=== PATIENT | male | born 1960 | race Caucasian/White ===

== ENCOUNTER → 2017-02-09 | Outpatient (CLI) | payer BC ==
[2017-02-09 18:21] LABS: BLOOD UREA NITROGEN 15 mg/dl (7-18); BUN/CREATININE RATIO 13.8 (10-20); CALCIUM 8.6 mg/dl (8.5-10.1); CARBON DIOXIDE 27 mmol/L (21-32); CHLORIDE 110 mmol/L (98-107); CHOLESTEROL 224 mg/dl (0-200); GLUCOSE 87 mg/dl (70-99); SODIUM 143 mmol/L (136-145)
[2017-02-09 18:31] LABS: CHOLESTEROL/HDL RATIO 5.1; HDL CHOLESTEROL 44 mg/dl; LDL CHOLESTEROL CALCULATED 133 mg/dl; TRIGLYCERIDES 236 mg/dl (0-150); VERY LOW DENSITY LIPOPROT CALC 47 mg/dl
[2017-02-10 08:05] LABS: ESTIMATED AVERAGE GLUCOSE 120 mg/dl; HA1C FLAG Normal (Normal)
== END | disposition home or self-care (01) ==
LOC: C.LABPVFM 15:52
PROVIDERS: ATTEND Family Medicine
DX: I10 Essential (primary) hypertension (principal); R73.03 Prediabetes; E78.5 Hyperlipidemia, unspecified

== ENCOUNTER → 2017-10-29 | Outpatient (CLI) | payer BC ==
[2017-10-29 13:28] LABS: BLOOD UREA NITROGEN 12 mg/dl (7-18); CALCIUM 8.5 mg/dl (8.5-10.1); CARBON DIOXIDE 27 mmol/L (21-32); CREATININE 1.01 mg/dl (0.60-1.40); GLUCOSE 105 mg/dl (70-99); SODIUM 139 mmol/L (136-145)
[2017-10-29 13:32] LABS: CHOLESTEROL 219 mg/dl (0-200); LDL CHOLESTEROL CALCULATED 147 mg/dl
== END | disposition home or self-care (01) ==
LOC: C.LABPVFM 08:30
PROVIDERS: ATTEND Family Medicine
DX: Z11.59 Encounter for screening for other viral diseases (principal); E78.5 Hyperlipidemia, unspecified; I10 Essential (primary) hypertension

== ENCOUNTER 2019-07-22 22:17 | Observation (INO) ==
[2019-07-22 23:11] LABS: Basophils # (auto) 0.02 K/uL (0-0.2); Basophils % (auto) 0.2 %; Eosinophils # (auto) 0.21 K/uL (0-0.5); Eosinophils % (auto) 1.6 %; Hemoglobin 15.9 g/dL (14.0-18.0); Immature Granulocytes # (auto) 0.07 K/uL (0.00-0.02); Immature Granulocytes % (auto) 0.5 %; Lymphocytes # (auto) 1.99 K/uL (1.2-3.4); Mean Corpuscular Hemoglobin 33.1 pg (25-34); Mean Corpuscular Hgb Conc 36.1 g/dL (32-36); Mean Corpuscular Volume 91.5 fL (80-100); Mean Platelet Volume 10.3 fL (7.4-10.4); Monocytes # (auto) 1.16 K/uL (0.11-0.59); Monocytes % (auto) 8.7 %; Neutrophils # (auto) 9.82 K/uL (1.4-6.5); Platelet Count 239 K/uL (130-400); RDW Coefficient of Variation 12.5 % (11.5-14.5); RDW Standard Deviation 41.8 fL (36.4-46.3); Red Blood Count 4.81 M/uL (4.7-6.1); White Blood Count 13.27 K/uL (4.8-10.8)
[2019-07-22] MEDS ORDERED: OPTIRAY 320 125ml IV PRN (23:16)
[2019-07-22 23:22] LABS: Partial Thromboplastin Ratio 0.9; Prothrombin Time 9.8 Seconds (9.0-12.0)
[2019-07-22 23:30] LABS: Alanine Aminotransferase 40 U/L (12-78); Albumin Level 3.6 gm/dl (3.4-5.0); Aspartate Aminotransferase 17 U/L (15-37); BUN Creatinine Ratio 10.9 (10-20); Blood Urea Nitrogen 11 mg/dl (7-18); Calcium 9.1 mg/dl (8.5-10.1); Carbon Dioxide 29 mmol/L (21-32); Chloride 105 mmol/L (98-107); Creatinine Clr Calc Pharmacy 99.4 ml/min; Est GFR (African American) 93.5; Est GFR (Non-African American) 80.6; Glucose 132 mg/dl (70-99); Potassium 3.7 mmol/L (3.5-5.1); Sodium 140 mmol/L (136-145)
[2019-07-22 23:34] LABS: Albumin Globulin Ratio 0.9 (0.9-2); Alkaline Phosphatase 79 U/L (45-117); Bilirubin,Total 0.6 mg/dl (0.2-1); Globulin 4.1 gm/dl (2.5-4.0); Total Protein 7.7 gm/dl (6.4-8.2); Troponin I < 0.015 ng/ml (0-0.045)
[2019-07-22] MEDS ORDERED: HEPARIN SODIUM/DEXTROSE 25,000 UNITS/500 ML BAG IV SCH (23:45)
[2019-07-23] MEDS ORDERED: Heparin BOLUS **ED Use Only IV STA (00:15)
[2019-07-23] MEDS ORDERED: MoRPHine SULFATE 4 MG/ML 1 ML CARP\\VIAL IV STA (00:42)
--- NOTE | 2019-07-23 00:42 | Emergency Department Note ---
Entered by Jose E German acting as a scribe for History of Present Illness General Chief complaint: Shortness of Breath/Dyspnea Stated complaint: RT SIDE CHEST PAIN, SOB, CHILLS- HX PE Time Seen by Provider: 07/22/19 22:35 Source: patient History of Present Illness Provider complaint: Shortness of breath Onset (ago): hour(s) (3.5) Location: chest Severity: similar to prior episodes Pain Consistency: + constant Maximum Pain Intensity: 8 Current Pain Intensity: 8 Quality: + sharp Exacerbated By: + other (Deep breaths) Associated symptoms: + chest pain, + fever/chills (No fevers) and + nausea/v omiting (No vomiting) The patient is a 58 year old male who presents to the Emergency Room with complaints of constant right sided chest pain that started about 3.5 hours ago. The patient rates the pain as an 8/10 and describes it as a sharp sensation that is worse with taking deep breaths. The patient endorses shortness of breath with the pain as well as some intermittent chills and nausea. The patient has a history of a PE which he developed while recovering from a [facility] i [facility]. The patient states this pain feels similar to when he had the PE. The patient adds that on 07/14 he had arthroscopic knee surgery. The patient denies any lower extremity swelling besides around where the procedure was done. He also denies any fevers or cough. Home Medications Home Medications Medication Instructions Recorded Confirmed Type amlodipine 5 mg PO QAM 06/27/19 07/22/19 History atorvastatin 10 mg PO QAM 06/27/19 07/22/19 History triamterene-hydrochlorothiazid 1 tab PO QAM 06/27/19 07/22/19 History ondansetron HCl [Zofran] 4 mg PO DAILY PRN #10 tab 07/15/19 07/22/19 Rx oxycodone 5 - 10 mg PO Q4H PRN #30 tab 07/15/19 07/22/19 Rx colchicine 0.6 mg tablet 0.6 mg PO .COMPLEX #10 tab 07/21/19 07/22/19 Rx Allergies Allergy/AdvReac Type Severity Reaction Status Date / Time No Known Allergies Allergy Mild Verified 07/22/19 23:10 Past Med/Surg History Medical History Abdominal wall abscess (Inactive) Carpal tunnel syndrome, bilateral (Acute) Cervical radiculopathy Cervicalgia (Inactive) Diverticulosis of colon (Inactive) Erectile dysfunction (Acute) Esophageal reflux (Acute) Hematoma of groin (Inactive) RESOLVED Hyperlipidemia (Acute) Hypertension (Acute) Paresthesias/numbness (Acute) Prediabetes (Inactive) Shoulder pain, right (Inactive) Thoracolumbar back pain (Acute) Surgical History History of colonoscopy Hx of shoulder surgery RCR by Dr. Alston 07/08/15 Family History Mother Diabetes Social History Preferred Language: Brazilian Communication Ability: Effective Visual Impairment: No Limitations Hearing Ability: Normal English Teacher Required: No Beliefs That Will Affect Care: None marital status: Current Living Situation: Significant Other current occupational status: employed current occupation: drives truck Feels Safe at Home: Yes Smoking Status: Never smoker Tobacco Type: smokeless tobacco ; Second Hand Exposure: No ; Hx Alcohol Use: Yes Alcohol type: beer Alcohol Intake Frequency: Daily Alcohol Intake Frequency Comment: 4 drinks/day Hx Substance Use: No caffeine: Yes Dental Care, Regularly: Yes Physical Activity Frequency: Daily Seatbelt Use: always Sunscreen Use: No Review of Systems See HPI for pertinent positives & negatives. and A total of 10 systems reviewed and were otherwise negative Physical Exam Vital Signs Vital Signs - 24 hr 07/22/19 22:17 07/22/19 22:19 07/22/19 22:40 Temperature 36.4 C L Temperature Source Oral Pulse Rate 104 H Pulse Rate [Apical] Respiratory Rate 16 Respiratory Effort / Characteristics Spontaneous Labored Non-Labored Spontaneous Respiratory Depth Normal Normal Respiratory Pattern Tachypnea Regular Blood Pressure 158/96 H Blood Pressure [Left Arm] Blood Pressure Mean 116 Blood Pressure Mean [Left Arm] Blood Pressure Position Sitting Pulse Oximetry 94 96 94 Oxygen Delivery Method Room Air Room Air Room Air Sepsis Recent Fever Within 48 Hours No Sepsis Action Taken by Nursing No Action Required 07/22/19 23:22 Temperature Temperature Source Pulse Rate Pulse Rate [Apical] 93 H Respiratory Rate 20 Respiratory Effort / Characteristics Respiratory Depth Respiratory Pattern Blood Pressure Blood Pressure [Left Arm] 182/93 H Blood Pressure Mean Blood Pressure Mean [Left Arm] 122 Blood Pressure Position Pulse Oximetry 96 Oxygen Delivery Method Room Air Sepsis Recent Fever Within 48 Hours Sepsis Action Taken by Nursing Constitutional: Vital signs reviewed. Eyes: Pupils are equal round reactive to light. Conjunctiva are noninjected. ENT: Pharynx is clear without erythema or exudate. Mucous membranes are moist. Neck supple without meningeal signs. Respiratory: Clear to auscultation bilaterally. Breath sounds are equal bilaterally. Cardiovascular: Regular rate and rhythm. No rubs or gallops. GI: Soft, nondistended and nontender. Bowel sounds are present. Musculoskeletal: No peripheral edema. No lower extremity tenderness. Swelling to the right knee, no erythema or increased warmth, no calf tenderness. Integumentary: No cyanosis. Neurological: The patient is awake and alert. No focal deficits. Psychiatric: Normal affect. Course Course 2237: Past medical records reviewed. The patient was evaluated in room A02, and a complete history and physical examination were performed. 2356: I reevaluated the patient and he is still in pain and tachypneic. He is sating 93 on RA. I updated the patient on test results. I discussed the patient's case with Dr. Conley [facility] Hospitalist about the patient's case and he agreed to accept the patient for further evaluation. Consultations Consultation #1: I discussed the patient's case with Dr. Yael Mcclellan [facility] Hospitalist about the patient's case and he agreed to accept the patient for further evaluation. Time: 23:56 Administered Medications Ioversol (Optiray 320 125ml) 93 ml IV ONCE PRN PRN Reason: Interaction Checking Stop: 07/26/19 23:15 Last Admin: 07/22/19 23:16 Dose: 93 ml Documented by: [id number] Critical Care Time Critical Care Time: Yes Total Critical Care Time: 35 I have personally spent approximately 35 minutes of critical care time in the direct management of this patient. This includes bedside care, interpretation of diagnostic studies, and testing, discussion with consultants, patient, and family members, and other required patient management activities. This 35 minutes is in excess of all separately billable procedures. Medical Decision Making Differential Diagnosis Differential Diagnosis includes: PE, DVT, pleurisy, PNA, and NH, amongst others. Medical Records Attestation: I reviewed the patient's medical records. I did perform a limited focused review of portions of the patient's old chart on the electronic medical record. The patient had arthroscopic surgery of the right knee on 07/15. Home Medications Current Medication List: was personally reviewed by me Laboratory Data Attestation: I reviewed the patient's lab results. Result diagrams: 07/22/19 22:54 07/22/19 22:54 Lab Results 07/22/19 07/22/19 07/22/19 Range/Units 22:54 22:54 22:54 WBC 13.27 H (4.8-10.8) K/uL RBC 4.81 (4.7-6.1) M/uL Hgb 15.9 (14.0-18.0) g/dL Hct 44.0 (42-52) % MCV 91.5 (80-100) fL MCH 33.1 (25-34) pg MCHC 36.1 H (32-36) g/dL RDW Std Deviation 41.8 (36.4-46.3) fL RDW Coeff of Verónica 12.5 (11.5-14.5) % Plt Count 239 (130-400) K/uL MPV 10.3 (7.4-10.4) fL Immature Gran % (Auto) 0.5 % Neut % (Auto) 74.0 % Lymph % (Auto) 15.0 % Catron % (Auto) 8.7 % Eos % (Auto) 1.6 % Baso % (Auto) 0.2 % Immature Gran # (Auto) 0.07 H (0.00-0.02) K/uL Neut # (Auto) 9.82 H (1.4-6.5) K/uL Lymph # (Auto) 1.99 (1.2-3.4) K/uL Catron # (Auto) 1.16 H (0.11-0.59) K/uL Eos # (Auto) 0.21 (0-0.5) K/uL Baso # (Auto) 0.02 (0-0.2) K/uL PT 9.8 (9.0-12.0) Seconds INR 1.0 (0.9-1.1) APTT 24.0 (21.0-31.0) Seconds PTT Ratio 0.9 Sodium 140 (136-145) mmol/L Potassium 3.7 (3.5-5.1) mmol/L Chloride 105 (98-107) mmol/L Carbon Dioxide 29 (21-32) mmol/L Anion Gap 6.0 (3-11) BUN 11 (7-18) mg/dl Creatinine 1.02 (0.6-1.4) mg/dl POC Creatinine (0.6-1.3) mg/dl Est Cr Clr Drug Dosing 99.4 ml/min Est GFR ( Amer) 93.5 Est GFR (Non-Af Amer) 80.6 BUN/Creatinine Ratio 10.9 (10-20) Glucose 132 H (70-99) mg/dl Calcium 9.1 (8.5-10.1) mg/dl Total Bilirubin 0.6 (0.2-1) mg/dl AST 17 (15-37) U/L ALT 40 (12-78) U/L Alkaline Phosphatase 79 (45-117) U/L Troponin I < 0.015 (0-0.045) ng/ml Total Protein 7.7 (6.4-8.2) gm/dl Albumin 3.6 (3.4-5.0) gm/dl Globulin 4.1 H (2.5-4.0) gm/dl Albumin/Globulin Ratio 0.9 (0.9-2) 07/22/19 Range/Units 22:59 WBC (4.8-10.8) K/uL RBC (4.7-6.1) M/uL Hgb (14.0-18.0) g/dL Hct (42-52) % MCV (80-100) fL MCH (25-34) pg MCHC (32-36) g/dL RDW Std Deviation (36.4-46.3) fL RDW Coeff of Verónica (11.5-14.5) % Plt Count (130-400) K/uL MPV (7.4-10.4) fL Immature Gran % (Auto) % Neut % (Auto) % Lymph % (Auto) % Catron % (Auto) % Eos % (Auto) % Baso % (Auto) % Immature Gran # (Auto) (0.00-0.02) K/uL Neut # (Auto) (1.4-6.5) K/uL Lymph # (Auto) (1.2-3.4) K/uL Catron # (Auto) (0.11-0.59) K/uL Eos # (Auto) (0-0.5) K/uL Baso # (Auto) (0-0.2) K/uL PT (9.0-12.0) Seconds INR (0.9-1.1) APTT (21.0-31.0) Seconds PTT Ratio Sodium (136-145) mmol/L Potassium (3.5-5.1) mmol/L Chloride (98-107) mmol/L Carbon Dioxide (21-32) mmol/L Anion Gap (3-11) BUN (7-18) mg/dl Creatinine (0.6-1.4) mg/dl POC Creatinine 1.0 (0.6-1.3) mg/dl Est Cr Clr Drug Dosing ml/min Est GFR ( Amer) Est GFR (Non-Af Amer) BUN/Creatinine Ratio (10-20) Glucose (70-99) mg/dl Calcium (8.5-10.1) mg/dl Total Bilirubin (0.2-1) mg/dl AST (15-37) U/L ALT (12-78) U/L Alkaline Phosphatase (45-117) U/L Troponin I (0-0.045) ng/ml Total Protein (6.4-8.2) gm/dl Albumin (3.4-5.0) gm/dl Globulin (2.5-4.0) gm/dl Albumin/Globulin Ratio (0.9-2) Imaging Data Radiologist's Impression: Radiology results as stated below per my review and the radiologist's interpretation: CTA CHEST: Study is positive for small subsegmental right lower lobe multifocal pulmonary embolism for example axial 106 and 78 Thoracic aorta within limits No pericardial effusion Trace right pleural fluid Central airways are patent without focal consolidation Dependent basilar atelectasis Radiologist: Jose E Khan M.D. Study ready at 23:25 and initial results transmitted at 23:45 Communications: Clear Time Type Notes 07/22/19 23:55 Verify Receipt Verified receipt with ER Clerk Cody, given to Dr. Zayas on 07/22 23:56 (-05:00) ECG Data Attestation: I personally reviewed and interpreted this ECG as follows: Indication: + SOB/dyspnea Rate (beats per minute): 90 Rhythm: + normal sinus ECG ST segments: no ST elevation ECG Findings: + Q waves (Lead 3 only); no PVCs Blood Pressure Blood Pressure Findings: Elevated blood pressure Blood Pressure Disposition: Referred to patients primary care provider [facility] Narrative I did evaluate the patient as noted above. The patient is presenting with sudden onset of right-sided chest pain with shortness of breath. He does have a prior history of PE and states that this feels similar. He just had arthroscopic surgery of his knee recently. IV access was established. The patient was placed on a continuous scale clerk. I did order and personally review the patient's 12-lead EKG as described above. Twelve-lead EKG does not demonstrate any acute ischemia. I did order and review the patient's blood work as noted in the electronic medical record. His white count is over 13,000. There is no signs of infection to his knee. This is a nonspecific finding. Electrolytes are unremarkable. Troponin is negative. I did order a CT angiogram of the chest. I did review the images myself as well as the radiology report as described above. He has multiple pulmonary emboli in the right lower lobe. I did discuss the test results with the patient. I did start him on heparin. He was given a bolus and then placed on a continuous drip of heparin. I did discuss risks with him prior to starting this. I did order a Doppler of the lower extremities. I did discuss the case with the hospitalist and senior case manager. He was given IV morphine and Zofran for pain. Impression & Plan Pulmonary emboli Discharge Plan Visit Data Chief Complaint: Shortness of Breath/Dyspnea Stated Complaint: RT SIDE CHEST PAIN, SOB, CHILLS- HX PE ED Provider: Cali Zayas Discharge Problem: Pulmonary emboli Patient Disposition: Being Evaluated by Hospitalist Forms Stand Alone Forms: My [facility] Prescriptions Prescriptions: No Action colchicine 0.6 mg tablet 0.6 mg PO .COMPLEX Qty: 10 RF: 2 atorvastatin 10 mg tablet 10 mg PO QAM RF: 0 amlodipine 5 mg tablet 5 mg PO QAM RF: 0 triamterene-hydrochlorothiazid 37.5-25 mg tablet 1 tab PO QAM RF: 0 ondansetron HCl [Zofran] 4 mg tablet 4 mg PO DAILY PRN (Reason: nausea and vomiting) Qty: 10 RF: 0 oxycodone 5 mg tablet 5 - 10 mg PO Q4H PRN (Reason: pain) Qty: 30 RF: 0 Referrals Referrals: Griffin Chaudhary MD [Primary Care Provider] - Discharge Problem: Pulmonary emboli Qualifiers: Pulmonary embolism type: unspecified Chronicity: acute Acute cor pulmonale pres ence: unspecified Qualified Code(s): I26.99 - Other pulmonary embolism without acute cor pulmonale The scribe's documentation has been prepared under my direction and personally reviewed by me in its entirety. I confirm that the note above accurately r eflects all work, treatment, procedures, and medical decision making performed by me.
[2019-07-23] MEDS ORDERED: ONDANSETRON INJ 2 MG/ML 2 ML VIAL IV STA (00:43)
[2019-07-23] MEDS: HYDROCODONE/ACETAMOPHEN 5/325MG TAB PO PRN ×3 (01:16→18:52)
[2019-07-23] MEDS: Heparin Adult STANDARD Wt-Based Dextrose 5% 25,000 units/500 mL IV SCH ×2 (01:16→17:14)
--- NOTE | 2019-07-23 02:02 | History & Physical Report ---
Date of Service July 23, 2019 Assessment & Plan (1) Pulmonary emboli: CTA for PE protocol showed right lower lobe multiple PEs. Bilateral lower extremity venous Dopplers negative for DVT. Continue heparin drip begun in ED. History of previous DVT and bilateral PE approximately 8 years ago associated with pelvic injury. Hypercoagulable work-up Present on Admission?: Yes (2) Gout: Colchicine 0.6 mg daily as needed flares Present on Admission?: No (3) Chewing tobacco nicotine dependence: Nicotine patch if desired Present on Admission?: Yes (4) Esophageal reflux: No active treatment Present on Admission?: Yes (5) Hyperlipidemia: Continue atorvastatin 10 mg daily Present on Admission?: Yes (6) Hypertension: Continue amlodipine 5 mg daily and triamterene/HCTZ daily Present on Admission?: Yes (7) Strain of right knee: Status post right knee surgery on 07/15. Dopplers at this time. No DVT present on Present on Admission?: Yes History of Present Illness Chief Complaint: The patient presents to the ED with complaint of the acute onset of severe right sided chest pain while watching TV. Primary Care Provider: Griffin Chaudhary MD The patient is a 58yo male with PMH including DVT/Bilateral PE about 8 years ago post pelvic injury, gout, HTN, HLD, GERD, Bilateral CTS and is status post Right knee surgery on 07/15. The pain he developed today was very similar to his previous PE pain, which prompted him to come to the ED today. In the ED, workup included a CTA PE protocol which showed multiple PE's in RLL, and venous doppler of bilateral LE's which were negative for DVT. He reports that his mother did have multiple PE's. Allergies Allergy/AdvReac Type Severity Reaction Status Date / Time No Known Allergies Allergy Mild Verified 07/22/19 23:10 Home Medications Home Medications Medication Instructions Recorded Confirmed Type amlodipine 5 mg PO QAM 06/27/19 07/22/19 History atorvastatin 10 mg PO QAM 06/27/19 07/22/19 History triamterene-hydrochlorothiazid 1 tab PO QAM 06/27/19 07/22/19 History ondansetron HCl [Zofran] 4 mg PO DAILY PRN #10 tab 07/15/19 07/22/19 Rx oxycodone 5 - 10 mg PO Q4H PRN #30 tab 07/15/19 07/22/19 Rx colchicine 0.6 mg tablet 0.6 mg PO .COMPLEX #10 tab 07/21/19 07/22/19 Rx Past Med/Surg History Medical History Abdominal wall abscess (Inactive) Carpal tunnel syndrome, bilateral (Acute) Cervical radiculopathy Cervicalgia (Inactive) Diverticulosis of colon (Inactive) Erectile dysfunction (Acute) Esophageal reflux (Acute) Hematoma of groin (Inactive) RESOLVED Hyperlipidemia (Acute) Hypertension (Acute) Paresthesias/numbness (Acute) Prediabetes (Inactive) Shoulder pain, right (Inactive) Thoracolumbar back pain (Acute) Surgical History History of colonoscopy Hx of shoulder surgery RCR by Dr. Alston 07/08/15 Family History Mother Diabetes Social History Preferred Language: Nigerien Communication Ability: Effective Visual Impairment: No Limitations Hearing Ability: Normal Set Up And Lay Out Inspector Required: No Beliefs That Will Affect Care: None marital status: Current Living Situation: Significant Other current occupational status: employed current occupation: drives truck Feels Safe at Home: Yes Smoking Status: Never smoker Tobacco Type: smokeless tobacco ; Second Hand Exposure: No ; Hx Alcohol Use: Yes Alcohol type: beer Alcohol Intake Frequency: Daily Alcohol Intake Frequency Comment: 4 drinks/day Hx Substance Use: No caffeine: Yes Dental Care, Regularly: Yes Physical Activity Frequency: Daily Seatbelt Use: always Sunscreen Use: No Review of Systems Review of Systems: The patient denies palpitations, cough, lower extremity swelling, sore throat, fevers, chills, sweats, weight change, fatigue, nausea, vomiting, diarrhea , constipation, abdominal pain, pelvic pain, blood in urine or stool, dysuria, urinary frequency or urgency, lightheadedness, dizziness, headache, memory loss, loss of consciousness, rash, abnormal bruising or bleeding, imbalance, focal or generalized weakness, numbness or tingling in arms, generalized arthralgias or myalgias, neck pain, or night sweats. The review of systems is otherwise negative other than for that already noted above, and at least 10 systems have been reviewed. Physical Exam Physical Exam: The patient is awake, alert and oriented 3, well developed and well nourished, normocephalic and atraumatic, lying in bed and in mild to moderate acute distress. HEENT--PERRL, EOMI, mucous membranes and oropharynx dry. Neck--supple. No JVD. No bruits. Thyroid normal, trachea midline, no adenopathy. Heart--normal S1 and S2. No murmurs, rubs or gallops. Lungs--clear bilaterally, no respiratory distress, no accessory muscle use. Some splinting due to pain Abdomen--normal bowel sounds and soft. Nontender. Nondistended. Extremities--no cyanosis or clubbing. No edema. There are good distal pulses b/l . Dermatologic--normal skin turgor, normal color, no abnormal lymph nodes, no rash. Neurologic--cranial nerves II through XII grossly intact. Rheumatologic--normal range of motion. Psychiatric--normal affect. Results & Data Vital Signs (Past 12 Hours) Vital Signs Temp Pulse Pulse Resp BP BP Pulse Ox 07/23/19 01:30 95 H 17 148/101 H 94 07/23/19 01:00 89 16 119/78 94 07/22/19 23:22 93 H 20 182/93 H 96 07/22/19 22:40 94 07/22/19 22:19 97.5 F L 104 H 16 158/96 H 96 07/22/19 22:17 94 Laboratory Results Laboratory Results WBC 13.27 K/uL (4.8-10.8) H 07/22/19 22:54 RBC 4.81 M/uL (4.7-6.1) 07/22/19 22:54 Hgb 15.9 g/dL (14.0-18.0) 07/22/19 22:54 Hct 44.0 % (42-52) 07/22/19 22:54 MCV 91.5 fL (80-100) 07/22/19 22:54 MCH 33.1 pg (25-34) 07/22/19 22:54 MCHC 36.1 g/dL (32-36) H 07/22/19 22:54 RDW Std Deviation 41.8 fL (36.4-46.3) 07/22/19 22:54 RDW Coeff of Verónica 12.5 % (11.5-14.5) 07/22/19 22:54 Plt Count 239 K/uL (130-400) 07/22/19 22:54 MPV 10.3 fL (7.4-10.4) 07/22/19 22:54 Immature Gran % (Auto) 0.5 % 07/22/19 22:54 Neut % (Auto) 74.0 % 07/22/19 22:54 Lymph % (Auto) 15.0 % 07/22/19 22:54 Hall % (Auto) 8.7 % 07/22/19 22:54 Eos % (Auto) 1.6 % 07/22/19 22:54 Baso % (Auto) 0.2 % 07/22/19 22:54 Immature Gran # (Auto) 0.07 K/uL (0.00-0.02) H 07/22/19 22:54 Neut # (Auto) 9.82 K/uL (1.4-6.5) H 07/22/19 22:54 Lymph # (Auto) 1.99 K/uL (1.2-3.4) 07/22/19 22:54 Hall # (Auto) 1.16 K/uL (0.11-0.59) H 07/22/19 22:54 Eos # (Auto) 0.21 K/uL (0-0.5) 07/22/19 22:54 Baso # (Auto) 0.02 K/uL (0-0.2) 07/22/19 22:54 PT 9.8 Seconds (9.0-12.0) 07/22/19 22:54 INR 1.0 (0.9-1.1) 07/22/19 22:54 APTT 24.0 Seconds (21.0-31.0) 07/22/19 22:54 PTT Ratio 0.9 07/22/19 22:54 Sodium 140 mmol/L (136-145) 07/22/19 22:54 Potassium 3.7 mmol/L (3.5-5.1) 07/22/19 22:54 Chloride 105 mmol/L (98-107) 07/22/19 22:54 Carbon Dioxide 29 mmol/L (21-32) 07/22/19 22:54 Anion Gap 6.0 (3-11) 07/22/19 22:54 BUN 11 mg/dl (7-18) 07/22/19 22:54 Creatinine 1.02 mg/dl (0.6-1.4) 07/22/19 22:54 POC Creatinine 1.0 mg/dl (0.6-1.3) 07/22/19 22:59 Est Cr Clr Drug Dosing 99.4 ml/min 07/22/19 22:54 Est GFR ( Amer) 93.5 07/22/19 22:54 Est GFR (Non-Af Amer) 80.6 07/22/19 22:54 BUN/Creatinine Ratio 10.9 (10-20) 07/22/19 22:54 Glucose 132 mg/dl (70-99) H 07/22/19 22:54 Calcium 9.1 mg/dl (8.5-10.1) 07/22/19 22:54 Total Bilirubin 0.6 mg/dl (0.2-1) 07/22/19 22:54 AST 17 U/L (15-37) 07/22/19 22:54 ALT 40 U/L (12-78) 07/22/19 22:54 Alkaline Phosphatase 79 U/L (45-117) 07/22/19 22:54 Troponin I < 0.015 ng/ml (0-0.045) 07/22/19 22:54 Total Protein 7.7 gm/dl (6.4-8.2) 07/22/19 22:54 Albumin 3.6 gm/dl (3.4-5.0) 07/22/19 22:54 Globulin 4.1 gm/dl (2.5-4.0) H 07/22/19 22:54 Albumin/Globulin Ratio 0.9 (0.9-2) 07/22/19 22:54 Diagnostic Findings [facility] Patient: ERIKA HEWITT (Male) : 60 Status: ER Date: 07/23/19 00:44 Room #: History: +PE. R/O DVT Slices: 44 Priors: Tech: Soco Allen @ [phone] Exams: US VENOUS BILATERAL LOWER EXTREMITIES Accession Numbers: [id number] Preliminary Findings Only See Final Report For Complete Findings US VENOUS BILATERAL LOWER EXTREMITIES: Negative for DVT Radiologist: Nereida Eli MD Study ready at 00:51 and initial results transmitted at 01:11 *This report constitutes a preliminary interpretation only. Non-acute findings felt to be unrelated to the clinical presentation may not be discussed in this report. The study will be interpreted and a final report will be generated by the local Radiologist the following shift. To reach the hospital radiology department call [phone]. If a discrepancy is found between the preliminary and final interpretations of this study, please notify us via our Client Portal at [email or web address].You can also fax this report with a description of the discrepancy, or include the final report, to our daytime fax number [phone].If faxing, please indicate the severity of discrepancy using one of the following categories: [ ] 1 - Agree/Informational [ ] 2 - Unlikely to Affect Management [ ] 3 - Possible Eventual Change of Management [ ] 4 - Probable Immediate Change of Management For all other patient related information, please fax us at [phone]. [id number] [facility] Patient: ERIKA HEWITT (Male) : 60 Status: ER Date: 07/22/19 23:19 Room #: History: right sided chest pains, shortness of breath recent right knee surgery on sunday Slices: 546 Priors: Tech: Leticia Leos @ [phone] Exams: CTA CHEST Contrast: IV Amt: 93ml of optiray Accession Numbers: [id number] Preliminary Findings Only See Final Report For Complete Findings CTA CHEST: Study is positive for small subsegmental right lower lobe multifocal pulmonary embolism for example axial 106 and 78 Thoracic aorta within limits No pericardial effusion Trace right pleural fluid Central airways are patent without focal consolidation Dependent basilar atelectasis Radiologist: Jose E Khan M.D. Study ready at 23:25 and initial results transmitted at 23:45 Communications: Clear Time Type Notes 07/22/19 23:55 Verify Receipt Verified receipt with ER Consulting Nursetita Cody, given to Dr. Zayas on 07/22 23:56 (-05:00) *This report constitutes a preliminary interpretation only. Non-acute findings felt to be unrelated to the clinical presentation may not be discussed in this report. The study will be interpreted and a final report will be generated by the local Radiologist the following shift. To reach the hospital radiology department call [phone]. If a discrepancy is found between the preliminary and final interpretations of this study, please notify us via our Client Portal at [email or web address] [email or web address].You can also fax this report with a description of the discrepancy, or include the final report, to our daytime fax number [phone].If faxing, please indicate the severity of discrepancy using one of the following categories: [ ] 1 - Agree/Informational [ ] 2 - Unlikely to Affect Management [ ] 3 - Possible Eventual Change of Management [ ] 4 - Probable Immediate Change of Management For all other patient related information, please fax us at [phone]. [id number] Code Status & VTE Plan Code Status Full code VTE Prophylaxis Plan VTE Prophylaxis will be ordered: Yes PG Care Time/CCT Total # of Minutes Spent Total Time Spent with Patient: Total time spent is greater than 50% in coordination of care (as documented) at patient's floor/unit and/or counseling patient: (1) Pulmonary emboli Acute cor pulmonale presence: unspecified Chronicity: acute Pulmonary embolism type: unspecified Qualified Code(s): I26.99 - Other pulmonary embolism without acute cor pulmonale
[2019-07-23] MEDS ORDERED: ALUMINUM/MAGNESIUM SUSP 30 ML UDC PO PRN (02:08)
[2019-07-23] MEDS ORDERED: MAGNESIUM HYDROXIDE SUSP 30 ML UDC PO PRN (02:08)
[2019-07-23] MEDS ORDERED: ONDANSETRON INJ 2 MG/ML 2 ML VIAL IV PRN (02:08)
[2019-07-23] MEDS ORDERED: ACETAMINOPHEN 325 MG TAB PO PRN (02:08)
[2019-07-23] MEDS ORDERED: ONDANSETRON 4 MG TAB PO PRN (02:08)
[2019-07-23] MEDS ORDERED: POLYETHYLENE (MIRALAX) 17 GM PACK PO PRN (02:08)
[2019-07-23] MEDS ORDERED: ZOLPIDEM TARTRATE 5 MG TAB PO PRN (02:08)
[2019-07-23] MEDS ORDERED: MoRPHine SULFATE 4 MG/ML 1 ML CARP\\VIAL IV PRN (02:20)
[2019-07-23] MEDS ORDERED: MoRPHine SULFATE 2 MG/ML CARP ONE (02:40)
--- NOTE | 2019-07-23 06:42 | Ultrasound Report ---
US venous doppler LE bilateral CLINICAL HISTORY: Pulmonary embolism. SUSPECTED DVT. COMPARISON STUDY: August 2010 FINDINGS: Real-time and color flow Doppler imaging were performed. Flow was seen within the femoral, popliteal and calf veins with no intraluminal thrombus demonstrated. The saphenous vein is patent. IMPRESSION: No evidence of lower extremity DVT. ACT 112: Negative or not required by law. Electronically signed by: Antoni Nova M.D. 07/23/2019 6:40 AM
[2019-07-23] MEDS: MoRPHine SULFATE 2 MG/ML CARP IV PRN ×3 (07:00→16:21)
--- NOTE | 2019-07-23 07:23 | CT Scan Report ---
CT ANGIOGRAPHY OF THE CHEST, PULMONARY EMBOLUS PROTOCOL CLINICAL HISTORY: Right-sided chest pain. Evaluate for pulmonary embolus. COMPARISON STUDY: Chest CT April 04, 2014. TECHNIQUE: Following IV administration of 93 mL of Optiray-320, helical axial images of the chest wer e obtained utilizing the pulmonary embolus protocol. Maximal intensity projections and sagittal and coronal reformats were viewed on an independent 3D workstation. IV contrast was administered without complication. Automated exposure control was utilized for the study. A dose lowering technique was utilized adhering to the principles of ALARA. CT DOSE: 578.66 mGy.cm FINDINGS: No central pulmonary embolus is identified. Pulmonary arterial opacification is suboptimal within the mid to upper pulmonary arterial vasculature. There are several subsegmental right lower l obe pulmonary emboli. There is no CT evidence for right heart strain. Subpleural opacity within the l ateral basilar segment right lower lobe is noted. There is no pneumothorax. The central airways are p atent. No enlarged thoracic lymph nodes are present. Prominent right hilar lymph nodes are unchanged from earlier chest CT. There is no thoracic aortic dissection. No suspicious osseous lesions are note d. Upper abdomen is unremarkable. IMPRESSION: 1. Several subsegmental right lower lobe pulmonary emboli. 2. Trace right pleural effusion. Mild opacity within the lateral basilar segment of the right lower l obe which may reflect a small pulmonary infarct or atelectasis. ACT 112: Negative or not required by law. Electronically signed by: Stuart Hunter M.D. 07/23/2019 7:22 AM
[2019-07-23 08:02] LABS: Partial Thromboplastin Ratio 1.3; Partial Thromboplastin Time 34.9 Seconds (21.0-31.0)
[2019-07-23] MEDS: AMLODIPINE BESYLATE 5 MG TAB PO SCH (08:46)
[2019-07-23] MEDS: ATORVASTATIN 10 MG TAB PO SCH (08:46)
[2019-07-23] MEDS: TRIAMTERENE/HCTZ 37.5/25MG TAB PO SCH (08:46)
[2019-07-23] MEDS: OXYCODONE HCL IR 5 MG TAB (IMMEDIATE RELEASE) PO PRN ×2 (08:48→17:17)
--- NOTE | 2019-07-23 10:14 | Hospitalist Progress Note ---
Date of Service July 23, 2019 Assessment & Plan (1) Pulmonary emboli: CTA for PE protocol showed right lower lobe multiple PEs. Mild hypoxia 89% on RA noted on VS this afternoon Bilateral lower extremity venous Dopplers negative for DVT. Continue heparin drip begun in ED - will transition to Eliquis 10 mg bid tonight. Risks and benefits of NOACs discussed with patient and he is agreeable History of previous DVT and bilateral PE approximately 8 years ago associated with pelvic injury. Hypercoagulable work-up pending Echo pending Trop negative on admission (2) Gout: Colchicine 0.6 mg daily as needed flares (3) Chewing tobacco nicotine dependence: Nicotine patch if desired (4) Esophageal reflux: No active treatment (5) Hyperlipidemia: Continue atorvastatin 10 mg daily (6) Hypertension: Continue amlodipine 5 mg daily and triamterene/HCTZ daily (7) Strain of right knee: Status post Right Knee Arthroscopy; Removal of Loose Bodies; Partial Medial Menisectomy, Patella Chondroplasty -07/[address] Hatch (8) DVT prophylaxis: Heparin to transition to Eliquis Subjective Mr. Geller is having pain in his right lower chest with breathing and feels tired and short of breath, denies cough. He otherwise has no complaints ROS Constitutional: no chills, aches, sweats or fever Respiratory: see HPI Cardiac: no chest pain, palpitations, edema, orthopnea or lightheadedness GI: no abdominal pain, nausea, vomiting, diarrhea or constipation : no dysuria or hesitancy Extremities: no joint pain or weakness Skin: no rash All other systems reviewed and negative Physical Exam Physical Exam: General: no distress Eyes: normal inspection, PERLL Respiratory: chest non tender, clear to auscultation, normal breath sounds, no respiratory distress, no accessory muscle use Cardiac: regular rate and rhythm, no rub or gallop, no murmur, no edema, no jvd GI/: active bowel sounds, no abd pain or tenderness, soft, non distended Extremities: normal range of motion, normal strength, non tender Neuro/Psych: alert and oriented x 3, normal mood and affect Skin: normal color, dry Results & Data Vital Signs (Past 12 Hours) Vital Signs Temp Pulse Pulse Pulse Resp BP BP 07/23/19 07:55 77 07/23/19 06:37 36.6 C 75 19 147/90 H 07/23/19 03:47 36.9 C 84 20 156/83 H 07/23/19 02:00 36.8 C 95 H 20 155/84 H 07/23/19 01:30 95 H 17 148/101 H 07/23/19 01:05 36.8 C 95 H 18 155/84 H 07/23/19 01:00 89 16 119/78 07/22/19 23:22 93 H 20 182/93 H 07/22/19 22:40 07/22/19 22:19 36.4 C L 104 H 16 158/96 H 07/22/19 22:17 Pulse Ox 07/23/19 07:55 07/23/19 06:37 91 07/23/19 03:47 92 07/23/19 02:00 94 07/23/19 01:30 94 07/23/19 01:05 94 07/23/19 01:00 94 07/22/19 23:22 96 07/22/19 22:40 94 07/22/19 22:19 96 07/22/19 22:17 94 PG Care Time/CCT Total # of Minutes Spent Total Time Spent with Patient: Total time spent is greater than 50% in coordination of care (as documented) at patient's floor/unit and/or counseling patient: (1) Pulmonary emboli Acute cor pulmonale presence: unspecified Chronicity: acute Pulmonary embolism type: unspecified Qualified Code(s): I26.99 - Other pulmonary embolism without acute cor pulmonale
[2019-07-23] MEDS ORDERED: HEPARIN IV BOLUS 7,000 UNITS in SYRINGE 0 ML IV ONE (12:00)
[2019-07-23 19:51] LABS: Partial Thromboplastin Ratio 1.6; Partial Thromboplastin Time 43.5 Seconds (21.0-31.0)
[2019-07-23] MEDS: APIXABAN 5 MG TABLET PO SCH (20:19)
--- NOTE | 2019-07-23 23:11 | Electrocardiogram Report ---
Test Reason : Blood Pressure : / mmHG Vent. Rate : 090 BPM Atrial Rate : 090 BPM P-R Int : 186 ms QRS Dur : 088 ms QT Int : 354 ms P-R-T Axes : 033 055 028 degrees QTc Int : 433 ms Normal sinus rhythm Normal ECG When compared with ECG of 27-JUN-2019 15:31, No significant change was found Confirmed by Dale Hines ([id number]) on 07/23/2019 11:11:14 PM Referred By: REFERRED SELF Confirmed By:Dale Hines
[2019-07-24] MEDS: HYDROCODONE/ACETAMOPHEN 5/325MG TAB PO PRN (04:30)
[2019-07-24] MEDS: APIXABAN 5 MG TABLET PO SCH (09:23)
[2019-07-24] MEDS: TRIAMTERENE/HCTZ 37.5/25MG TAB PO SCH (09:24)
[2019-07-24] MEDS: AMLODIPINE BESYLATE 5 MG TAB PO SCH (09:24)
[2019-07-24] MEDS: ATORVASTATIN 10 MG TAB PO SCH (09:24)
[2019-07-24 09:52] LABS: Hematocrit (blood only) 39.4 % (42-52); Hemoglobin 13.7 g/dL (14.0-18.0); Mean Corpuscular Hemoglobin 32.1 pg (25-34); Mean Corpuscular Hgb Conc 34.8 g/dL (32-36); Mean Corpuscular Volume 92.3 fL (80-100); Mean Platelet Volume 10.2 fL (7.4-10.4); Platelet Count 155 K/uL (130-400); RDW Coefficient of Variation 12.4 % (11.5-14.5); RDW Standard Deviation 41.7 fL (36.4-46.3); Red Blood Count 4.27 M/uL (4.7-6.1); White Blood Count 7.79 K/uL (4.8-10.8)
[2019-07-24 10:27] LABS: Albumin Level 3.1 gm/dl (3.4-5.0); Calcium 8.9 mg/dl (8.5-10.1); Est GFR (African American) 91.3; Est GFR (Non-African American) 78.8; Potassium 3.7 mmol/L (3.5-5.1)
[2019-07-24 10:30] LABS: Albumin Globulin Ratio 0.8 (0.9-2); Bilirubin,Total 1.2 mg/dl (0.2-1); Total Protein 7.1 gm/dl (6.4-8.2)
[2019-07-24 12:45] LABS: Estimated Average Glucose 123 mg/dl; Hemoglobin A1C 5.9 % (4.5-5.6)
--- NOTE | 2019-07-24 13:59 | Discharge Summary ---
Date of Service July 24, 2019 Admission HPI Per Admitting Provider The patient is a 58yo male with PMH including DVT/Bilateral PE about 8 years ago post pelvic injury, gout, HTN, HLD, GERD, Bilateral CTS and is status post Right knee surgery on 07/15. The pain he developed today was very similar to his previous PE pain, which prompted him to come to the ED today. In the ED, workup included a CTA PE protocol which showed multiple PE's in RLL, and venous doppler of bilateral LE's which were negative for DVT. He reports that his mother did have multiple PE's. Principal Diagnosis Pulmonary embolus Discharge Exam Constitutional WD/WN, vitals as above Respiratory normal respiratory effort, lungs clear to auscultation Cardiovascular RRR, no murmur, no edema Gastrointestinal (Abdomen) normal bowel sounds, soft, nontender, no hepatosplenomegaly Musculoskeletal no cyanosis or clubbing, extremities motor strength 5/5 Skin no rashes, warm and dry Neurologic moves all extremities and awake Psychiatric A+Ox3, euthymic affect Discharge Data Allergies Allergy/AdvReac Type Severity Reaction Status Date / Time No Known Allergies Allergy Mild Verified 07/22/19 23:10 Consultations 07/22/19 23:57 ED Decision to Admit Stat 07/23/19 02:08 Consult Case Management - Discharge Planning Routine Ordered Studies 07/22/19 22:40 CT angio chest PE protocol Urgent 07/22/19 23:51 US venous doppler [facility] Urgent Hospital Course (1) Pulmonary emboli: CTA for PE protocol showed right lower lobe multiple PEs. Mild hypoxia 89% yesterday, now improved Bilateral lower extremity venous Dopplers negative for DVT. Transitioned from heparin gtt to Eliquis 10 mg bid 07/24. Risks and benefits of NOACs discussed with patient and he is agreeable History of previous DVT and bilateral PE approximately 8 years ago associated with pelvic injury. Hypercoagulable work-up pending Echo showing normal EF, no wma, severe concentric left ventricular hypertrophy Trop negative on admission (2) Gout: Colchicine 0.6 mg daily as needed flares (3) Chewing tobacco nicotine dependence: Nicotine patch if desired (4) Esophageal reflux: No active treatment (5) Hyperlipidemia: Continue atorvastatin 10 mg daily (6) Hypertension: Given above results of echo, patient's blood pressure probably needs to be under better control Will change amlodipine to losartan 50 mg to help reduce remodeling and better improve pressures. Continue hctz/triamterene. Check blood pressures daily and follow with pcp (7) Strain of right knee: Status post Right Knee Arthroscopy; Removal of Loose Bodies; Partial Medial Menisectomy, Patella Chondroplasty -07/[address] Hatch (8) Elevated bilirubin: Bili is 1.2 - no complaints of abdominal pain, nausea, or vomiting Follow with pcp (9) Hyperglycemia: A1c was 5.9 - follow up with pcp. Encourage lifestyle changes. (10) DVT prophylaxis: Eliquis Total Time Total Time Spent Total Time Spent (In Minutes): greater than 30 minutes Discharge Plan Discharge Items Patient Disposition: Home - Self-Care Reason For Visit: RLL PULMONARY EMBOLI Discharge Diagnosis: Right lower lobe pulmonary emboli Activity: Resume your previous activity Non-emergency contact: Primary Care Provider Call non-emergency contact if: you have any medication questions Follow-up/Referrals: Griffin Chaudhary MD [Primary Care Provider] - 07/30/19 10:00 am (Please, follow up at [facility] with Dr. Chaudhary on SundayJuly 30 at 10:00 am. *If you need ot change this appointment, call the office at [phone].) Ian Hatch [Surgeon] - 07/28/19 8:00 am (Please, follow up at [facility] with Dr. Ian Hatch on SundayJuly 28 at 8:00 am. *If you need to change this appointment, call the office at [phone].) Diet: Heart Healthy and Low Sodium (2gm) Addtl Attending Provider Instructions: (1) Pulmonary emboli: In the right lower lobe. You will continue with Eliquis twice daily. As we discussed, this may be a medication you stay on indefinitely given that this is your second time with blood clots. You should call your doctor right away if you fall or hit your head, if you see blood in your stool or black tarry stools, if you develop little red spots on your skin (petechiae), or if you develop excessive bruising. You may bleed more easily. Be careful and avoid injury. Use a soft toothbrush and an electric razor. Do not to take any whoe-uzk-csuanqy pain medicine except Tylenol (including aspirin, ibuprofen, Motrin, Aleve, Advil, naproxen, diclofenac sodium, oral Voltaren, also not allowed to take fish oil as all these medications increase your incidence of bleeding) You can take Tylenol as needed for pain but not more than 3000 mg per day as a total dose (that is the maximum of 6 tablet, 500 mg each, divided throughout the day) , if you take more than the total of 3000 mg of Tylenol throughout the day you may damage your liver. Your hypercoagulable work-up to look for causes for your tendency to have blood clots is still pending. Please follow up with your primary care provider. - You will take Eliquis 10 mg twice a day for a total of 7 days and then transition to 5 mg twice daily. You have completed one total day of this therapy and so have 6 more to go starting tonight. - Follow up with your primary care provider concerning repeat imaging. You may need to reimage your lungs to ensure resolution in 4-6 weeks per your doctor's discretion. (2) Hypertension: Some adjustments have been made to your antihypertensive regimen. Your echocardiogram (ultrasound of your heart) showed severe left ventricular hypertrophy. This essentially means that your heart muscle has become bigger likely due to increased work to pump blood out to the body because of high blood pressure. To improve this and hopefully help to reverse some of this hypertrophy I have started you on losartan. You will discontinue your amlodipine. Please check your blood pressure every day at different times after sitting quietly for 5-15 minutes. Keep a log to take with you to your next doctor's appointment. Please let your doctor know if you are getting dizzy or lightheaded or if the top number is below 100 when you take your blood pressure. Limit your sodium intake to around 2000 mg per day. I HIGHLY ENCOURAGE YOU TO STOP USING TOBACCO. Please discuss with your doctor cessation strategies if stopping is difficult for you (3) Hyperglycemia Your blood sugars were elevated while in the hospital. A hemoglobin A1c was drawn. This value gives an estimate of what your blood sugars have been running over the last 3 months. Normal A1C is considered to be below 5.7 percent. Results between 5.7 and 6.4 percent may mean you have prediabetes. This means you have a higher risk of developing diabetes. You will need to follow up with your doctor on monitoring this but you should start with modifying your diet to include lots of fruits, vegetables, lean proteins (chicken, fish, tofu, beans), and whole grains (whole wheat bread, brown rice, whole wheat pasta). Avoid simple and refined carbohydrates like white bread, white potatoes, white rice and sugary treats. You should also increase your exercise after you are cleared by your doctor to do so. Pending Studies at Discharge: Yes Studies:: Hypercoagulable lab work Stand-Alone Forms: [facility], Work/School Release (Inpt), Smoking Cessation Medications and DC Order Prescriptions: New apixaban 5 mg tablet See Rx Instructions .ROUTE .COMPLEX Qty: 36 RF: 2 oxycodone 5 mg Tablet 5 mg PO Q4H PRN (Reason: pain) Qty: 18 RF: 0 losartan 50 mg tablet 50 mg PO DAILY Qty: 30 RF: 0 Continued colchicine 0.6 mg tablet 0.6 mg PO .COMPLEX Qty: 10 RF: 2 atorvastatin 10 mg tablet 10 mg PO QAM RF: 0 triamterene-hydrochlorothiazid 37.5-25 mg tablet 1 tab PO QAM RF: 0 ondansetron HCl [Zofran] 4 mg tablet 4 mg PO DAILY PRN (Reason: nausea and vomiting) Qty: 10 RF: 0 Discontinued amlodipine 5 mg tablet 5 mg PO QAM RF: 0 oxycodone 5 mg tablet 5 - 10 mg PO Q4H PRN (Reason: pain) Qty: 30 RF: 0 Discharge Orders: Discharge Order (Routine); Ordered 07/24/19 Ordered By: Isadora Lopez/Other Patient Handouts: Apixaban Oral tablet, Losartan Potassium Oral tablet Admission Data Admit Date/Time: 07/23/19 01:06 Attending Provider: Tomas Desai Admit Provider: Salvador Conley Primary Care Provider: Griffin Chaudhary Other Providers: Tomas Desai Other Interventions: Discharge Summary Assessment (RN) Last Done: 07/24/19 15:06 DC Date/Time DO NOT enter until pt leaves facility: 07/24/19 16:23 Supervising Physician Co-Signing Physician Notes I supervised Isadora Ferraro NP on this patient's care. I examined the patient today independently of her. I discussed the plan of care with her with the plan being as written in her note except for any following changes/exceptions: None. Feeling well. Less pain. Will follow up as outpatient for hypercoaguable labs. Coding Level of Care Code D/C Day Management >30 mins Diagnoses Pulmonary emboli I26.99 Acute cor pulmonale presence: unspecified Chronicity: acute Pulmonary embolism type: unspecified Gout M10.9 Chewing tobacco nicotine dependence F17.220 Esophageal reflux K21.9 Hyperlipidemia E78.5 Hypertension I10 Strain of right knee S86.911A Elevated bilirubin R17 Hyperglycemia R73.9 DVT prophylaxis Z29.9
--- NOTE | 2019-07-25 05:42 | Electrocardiogram Report ---
Test Reason : Blood Pressure : / mmHG Vent. Rate : 070 BPM Atrial Rate : 070 BPM P-R Int : 190 ms QRS Dur : 086 ms QT Int : 402 ms P-R-T Axes : 029 003 005 degrees QTc Int : 434 ms Normal sinus rhythm Minimal voltage criteria for LVH, may be normal variant Inferior infarct , age undetermined Abnormal ECG When compared with ECG of 22-JUL-2019 22:25, Inferior infarct is now Present Confirmed by Dale Hines ([id number]) on 07/25/2019 5:42:34 AM Referred By: REFERRED SELF Confirmed By:Dale Hines
[2019-07-28 17:27] LABS: Anti Cardiolipin Ab IgG <14 GPL; Anti Cardiolipin Ab IgM <12 MPL; Anti-Cardiolipin Ab IgA 15 APL; Anti-Thrombin III Activity 102 % activity (80-120); B2 Glycoprotein IgA <9 SAU (<=20); B2 Glycoprotein IgG <9 SGU (<=20); B2 Glycoprotein IgM <9 SMU (<=20); PTT LA Screen 32 sec (<=40); Protein S Functional(Activity) 99 % (70-150)
== END 2019-07-24 16:23 | disposition home or self-care (01) ==
LOC: 2W 22:17 → ED 22:17 → SUATTDRO 07-23 01:06 → 2W 07-23 01:40

== ENCOUNTER 2020-08-13 08:49 | Observation (INO) ==
--- NOTE | 2020-07-27 14:03 | Anesthesiology Consultation ---
Date of Service July 27, 2020 Assessment & Plan (1) Encounter for pre-operative examination: Chart Review Chart Review: Pending: Refer to Additional Notes / Consult section (pending updated preop labs and preop Covid testing ) and Patient NOT seen in Pre Admission Testing Pt getting preop labs updated when preop Covid testing testing done 08/09/20= will await results. Per nursing assessment 07/27/20, pt denies any recent travel. No known Covid positive contacts or Covid related symptoms. Pt denies any Covid infection in the past 90 days. Pt scheduled for preop Covid testing 08/09/[address] Alston's office= will await results. History Surgery Operation Date: 08/13/20 11:15 Proposed Procedures p Right Total Knee Arthroplasty - Juan Alston, Height/Weight Height: 6 ft 1 in Weight: 96.615 kg Allergies Allergy/AdvReac Type Severity Reaction Status Date / Time No Known Allergies Allergy Mild Verified 06/21/20 13:46 Medications Home Medications Medication Instructions Recorded Confirmed Last Taken colchicine 0.6 mg tablet 0.6 mg PO .COMPLEX #20 tab 12/12/19 07/27/20 Unknown ibuprofen 400 mg PO Q6H PRN 05/19/20 07/27/20 Unknown rivaroxaban [Xarelto] 20 mg PO QAM 05/19/20 07/27/20 Unknown atorvastatin 10 mg tablet 10 mg PO QAM #30 tab 06/14/20 07/27/20 Unknown losartan 100 mg tablet 50 mg PO QAM #90 tab 07/09/20 07/27/20 Unknown triamterene 37.5 1 tab PO QAM #30 tab 07/19/20 07/27/20 Unknown mg-hydrochlorothiazide 25 mg tablet Past Medical History Medical History Cervical radiculopathy Esophageal reflux Hx of gout Hyperlipidemia Hypertension Prediabetes Diet controlled Pulmonary embolism S/P KNEE SURGERY 07/2019 [facility]. 1-2 WEEKS POST OP-HAS BEEN ON THINNER SINCE F/U DR SALEEM ALLEN POST OP Past Family History Family History Mother Diabetes Denies family history of Ovarian cancer Prostate cancer Myocardial infarction Breast cancer Colorectal cancer Past Surgical History Surgical History History of colonoscopy Hx of shoulder surgery RCR by Dr. Alston 07/08/15 S/P right knee arthroscopy 07/2019 [facility] Social History Smoking Status: Former smoker tobacco type: cigarettes and smokeless tobacco Do You Dip or Chew Tobacco: No (QUIT 3 YEARS AGO) Smoking End Date: 3 YRS AGO Hx Alcohol Use: Yes Alcohol type: beer alcohol intake frequency: a few times a week Hx Substance Use: No substance use type: does not use Testing Electrocardiogram Date: 05/24/20 Findings: + NSR @ (70bpm) Normal EKG per cardio. Compared to EKG from 07/2019, criteria for inferior infarct no longer present. Chest X-Ray Date: 05/24/20 Findings: + NAD Echocardiogram Date: 07/23/19 EF: 60-65% LV Function: normal RWMA: + none Other Findings: + LVH ([facility]) and + diastolic dysfunction (Grade I ) Valvular Disease: + no significant valvular disease Normal RV size and systolic function. (Pt was admitted in hospital for PE at time of ECHO)
--- NOTE | 2020-08-12 07:42 | History & Physical Report ---
Date of Service August 12, 2020 Assessment & Plan (1) Right knee DJD: We will proceed with a right total knee arthroplasty. Postoperatively he will be started back on his Xarelto for DVT prophylaxis and kept overnight in the hospital for postoperative medical management. He plans to use [facility] physical therapy and [facility] upon discharge. History of Present Illness Chief Complaint: Osteoarthritis of the right knee. Primary Care Provider: Garry Schmitt DO Moreno is a pleasant 59-year-old male who has been dealing with chronic increasing right knee pain. He original x-rays and MRI show some arthritis and loose bodies. He underwent a right knee arthroscopy in July 2019. Unfortunately he did not do well postoperatively. He has had a couple of injections but continues to have knee pain. He has trouble regaining range of motion. His knee hurts him all the time. Follow-up x-rays show advancing osteoarthritis of the right knee. After failing conservative treatment, he has elected proceed with a right total knee arthroplasty.. Allergies Allergy/AdvReac Type Severity Reaction Status Date / Time No Known Allergies Allergy Mild Verified 06/21/20 13:46 Home Medications Medication Instructions Recorded Confirmed Type colchicine 0.6 mg tablet 0.6 mg PO .COMPLEX #20 tab 12/12/19 07/27/20 Rx ibuprofen 400 mg PO Q6H PRN 05/19/20 07/27/20 History rivaroxaban [Xarelto] 20 mg PO QAM 05/19/20 07/27/20 History atorvastatin 10 mg tablet 10 mg PO QAM #30 tab 06/14/20 07/27/20 Rx losartan 100 mg tablet 50 mg PO QAM #90 tab 07/09/20 07/27/20 Rx triamterene 37.5 1 tab PO QAM #30 tab 07/19/20 07/27/20 Rx mg-hydrochlorothiazide 25 mg tablet Past Med/Surg History Medical History Cervical radiculopathy Esophageal reflux Hx of gout Hyperlipidemia Hypertension Prediabetes Diet controlled Pulmonary embolism S/P KNEE SURGERY 07/2019 [facility]. HAS BEEN ON THINNER SINCE F/U DR SALEEM ALLEN POST OP Surgical History History of colonoscopy Hx of shoulder surgery RCR by Dr. Alston 07/08/15 S/P right knee arthroscopy 07/2019 [facility] Family History Mother Diabetes Denies family history of Ovarian cancer Prostate cancer Myocardial infarction Breast cancer Colorectal cancer Social History Smoking Status: Former smoker Second Hand Exposure: No; Hx Alcohol Use: Yes Alcohol type: beer Alcohol Intake Frequency Comment: 4 drinks/day Hx Substance Use: No Preferred Language: Turkmen Communication Ability: Effective Visual Impairment: No Limitations Hearing Ability: Normal Outside Machinist Required: No Beliefs That Will Affect Care: None marital status: Current Living Situation: Significant Other current occupational status: employed current occupation: drives truck Feels Safe at Home: Yes caffeine: Yes Dental Care, Regularly: Yes Physical Activity Frequency: Daily Seatbelt Use: always Sunscreen Use: No Assistive Devices: None Review of Systems All systems reviewed & are unremarkable except as noted in HPI & below. Physical Exam On physical examination of the right knee he has range of motion from 10 to 110 degrees. He has trouble reaching full extension. He is a +2 effusion. He has pain of the distal medial femoral condyle and over the medial joint line.. Constitutional WD/WN, vitals as above Eyes PERRL, conjunctivae normal, anicteric sclerae ENMT external ear and nose normal, oropharynx normal Neck trachea midline, no thyromegaly Respiratory normal respiratory effort Cardiovascular RRR, no murmur, no edema Gastrointestinal (Abdomen) normal bowel sounds, soft, nontender, no hepatosplenomegaly Psychiatric A+Ox3, euthymic affect Results & Data Results & Data Laboratory Results . Diagnostic Findings X-rays of the right knee do show advanced osteoarthritis with joint space narrowing, osteophyte formation, and salp-by-hawo articulation.. PG Care Time/CCT Total # of Minutes Spent Total Time Spent with Patient: Total time spent is greater than 50% in coordination of care (as documented) at patient's floor/unit and/or counseling patient: Coding Level of Care Code None Diagnoses Right knee DJD M17.11
[~2020-08-13 08:49] MED LIST: ACETAMINOPHEN 500 MG TAB PO SCH; BUPIVACAINE 0.5 % 5 MG/1 ML PF 10ML VIAL ONE; FAMOTIDINE 20 MG TAB PO SCH; GABAPENTIN 600 MG DOSE PO SCH; LR 500ML BOLUS, THEN 15ML/HR IV SCH; LR 60ML/HR IV SCH; ROPIVACAINE 0.5% 5 MG/ML 30 ML VIAL ONE; ROPIVACAINE 0.5% HCL/PF 150 MG, BUPIVACAINE 0.75% MPF 20 ML, EPINEPHrine 30MG/30ML (OR ... INSTIL SCH; TRANEXAMIC ACID 1,000 MG **IV Intra-op IV SCH; TRANEXAMIC ACID 1,000 MG **IV Pre-op IV SCH; ceFAZolin 2000MG 2,000 MG/15 ML SYR IV SCH; dexAMETHasone 4 MG TAB PO SCH
[2020-08-13] MEDS ORDERED: PROPOFOL IV EMULSION 10 MG/ML 20 ML VIAL IV ONE (09:08)
[2020-08-13] MEDS ORDERED: KETOROLAC 30 MG/ML VIAL ONE (09:08)
[2020-08-13] MEDS ORDERED: GLYCOPYRROLATE 0.2 MG/ML VIAL ONE (09:08)
[2020-08-13] MEDS ORDERED: ONDANSETRON INJ 2 MG/ML 2 ML VIAL ONE (09:08)
[2020-08-13] MEDS ORDERED: MIDAZOLAM HCL 1 MG/ML 2ML VIAL ONE (09:08)
[2020-08-13] MEDS ORDERED: LIDOCAINE HCL 2% 2 ML VIAL/AMP(20MG/ML) INFIL ONE (09:08)
--- NOTE | 2020-08-13 09:57 | History & Physical Bridge Note ---
Date of Service August 13, 2020 History & Physical Bridge Note I have examined the patient, reviewed the History & Physical and in the interval since the performance of the History & Physical I have noted the following changes of clinical significance: no changes noted
[2020-08-13] MEDS ORDERED: ORTHO JOINT ANESTHETIC ONE (10:16)
[2020-08-13] MEDS ORDERED: ePHEDrine sulfate 50 MG/ML AMP IV PRN (10:38)
[2020-08-13] MEDS ORDERED: ONDANSETRON INJ 2 MG/ML 2 ML VIAL IV PRN ×2 (10:38→14:42)
[2020-08-13] MEDS ORDERED: HYDROmorphone INJ 2 MG/ML SYR/VIAL IV PRN (10:38)
[2020-08-13] MEDS ORDERED: fentaNYL citrate 100 MCG/2 ML VIAL IV PRN (10:38)
[2020-08-13] MEDS ORDERED: ATROPINE SULFATE 0.1 MG/ML 10ML SYR IV PRN (10:38)
[2020-08-13] MEDS ORDERED: BUPIVACAINE 0.25% 30 ML VIAL ONE (10:56)
[2020-08-13] MEDS ORDERED: EPINEPHrine INJ 1 MG/ML AMP ONE (10:56)
[2020-08-13] MEDS ORDERED: KETAMINE 50 MG/5 ML SYRINGE ONE (10:57)
--- NOTE | 2020-08-13 12:38 | Operative Report ---
PG Post Operative Report Pre & Post Diagnosis Operation Date: 08/13/20 11:30 Pre-Op Diagnosis: Degenerative joint disease, right knee Post-Op Diagnosis: Degenerative joint disease, right knee I identified the patient and participated in the time-out.: Yes Procedure Operation Date: 08/13/20 11:30 Actual Procedures p Right Total Knee Arthroplasty(Right) - Juan Alston DO Surgeon Juan Alston DO Research Hydrologist Juan Hager PAC Estimated Blood Loss 20 Findings Consistent with Post-Op Diagnosis Specimens Right femoral and tibial bone Complications none Disposition Disposition: Recovery Room Indications Moreno is a pleasant 59-year-old male who is been dealing with chronic increasing right knee pain. X-rays and clinical examination were diagnostic for advanced osteoarthritis of the right knee. After failing conservative treatment, he elected proceed with a right total knee arthroplasty. Description of Procedure Implants used: I used a Patrick Persona total knee arthroplasty system with a size 10 standard femur, G tibia, 32 patella, and a size 10 medial congruent polyethylene bearing. All components were cemented in place with Palacos G cement. Moreno arrived [facility] for the above procedure. He was seen in the preoperative holding area and the operative extremity was identified and signed. He was given a preoperative antibiotic, TXA, a spinal anesthetic and an adductor nerve block. He was taken back to the operating room and laid on the table in supine position. He was given basic sedation. The operative knee was then prepped and draped in sterile fashion. A timeout was done, and the patient and the operative extremity was properly identified. A midline incision was made directly over the patella. Dissection was taken down to the extensor mechanism. A subvastus arthrotomy was used. The medial retinaculum was released and the fat pad was mostly excised. The knee was flexed and the ACL, PCL, and meniscus were removed. A drill was sent down the center of the femoral canal followed by an intramedullary brody. Off that brody a distal femoral cutting block was placed. 9 mm was resected off the distal femur at 5 of valgus. A posterior referencing AP sizing guide was then placed on the distal femur. The femur measured to be a size 10. 2 drill holes were placed in 3 of external rotation. A 4-in-1 cutting block was then impacted into place. Anterior, posterior, and chamfer cuts were then made. The proximal tibia was then exposed. An external tibial alignment guide was placed. A tibial cut guide was then anchored in place and the proximal tibia was then resected. The posterior aspect of the knee was then opened up and any additional meniscus fragments and osteophytes were removed. The tibia measured to be a size G. The tibial plate was then placed in the appropriate rotation and the tibia was drilled and punched. Trial components were then placed. I used a size 10 medial congruent polyethylene insert. The knee was brought through a full range of motion and felt to be stable. The peg holes for the femoral component were then drilled. The patella was then everted and 9 mm was resected off the posterior aspect of the patella. The patella measured to be a size 32. 3 peg holes were then drilled. A trial patella was placed. The knee was once again brought through a full range of motion and felt to be stable. Trial components were then removed. The surrounding soft tissues were injected with 100 cc of an orthopedic pain control cocktail. All components were then cemented into place with Palacos G cement. The final polyethylene insert was then snapped into place. Once cement was dry the tourniquet was deflated. Hemostasis was obtained. A dilute betadyne lavage was then done for 3 minutes. The joint was then irrigated with normal saline solution. The subvastus arthrotomy was then closed with #1 Vicryl suture. The skin was closed with 2-0 Vicryl, 3-0V lock suture, and victoria. A Silverlon and a soft compressive dressing were placed. He was then transferred to a hospital bed and taken to the postanesthesia care unit in stable condition. He tolerated the procedure well. Juan Hager PA-C, was present for the entire procedure. He was critical for patient positioning, prepping, draping, retraction exposure, wound closure and application of sterile dressing. I attest to the content of the Intraoperative Record and any orders documented therein. Any exceptions are noted below.
--- NOTE | 2020-08-13 13:22 | XRay Report ---
TWO VIEWS RIGHT KNEE CLINICAL HISTORY: Postoperative examination. FINDINGS: AP and crosstable lateral portable views of the right knee are compared to study dated 05/02. A right knee arthroplasty is in near anatomic alignment. There has been undersurface remodeli ng of the patella. No acute fracture is seen. An 11 mm ossific fragment is suggested along the latera l joint space. There are expected postoperative changes around the knee including skin clips, a surgi ozzy drain, soft tissue edema, and subcutaneous gas. IMPRESSION: 1. Expected postoperative changes status post right knee arthroplasty. No acute fracture is seen. 2. An 11 mm bony fragment is seen along the lateral joint space. ACT 112: Negative or not required by law. Electronically signed by: Virgil Romano M.D. 08/13/2020 1:20 PM
[2020-08-13] MEDS ORDERED: NALOXONE HCL 0.4 MG/1 ML VIAL/CARP IV PRN (14:42)
[2020-08-13] MEDS ORDERED: COLCHICINE 0.6 MG TAB PO PRN (14:42)
[2020-08-13] MEDS ORDERED: HYDROmorphone INJ 0.5 MG/0.5 ML SYR IV PRN (14:42)
[2020-08-13] MEDS ORDERED: METOCLOPRAMIDE HCL INJ 5 MG/ML 2 ML VIAL IV PRN (14:42)
[2020-08-13] MEDS ORDERED: bisacodyL 10 MG SUPP PR PRN (14:42)
[2020-08-13] MEDS ORDERED: MAGNESIUM HYDROXIDE SUSP 30 ML UDC PO PRN (14:42)
[2020-08-13] MEDS ORDERED: SODIUM CHLORIDE 0.9% 1000ML 1,000 ML IV SCH (14:42)
[2020-08-13] MEDS ORDERED: oxyCODONE HCL IR 5 MG TAB (IMMEDIATE RELEASE) PO PRN (14:42)
--- NOTE | 2020-08-13 14:50 | Anesthesiology Progress Note ---
Date of Service August 13, 2020 Anesthesia Post Procedure Vital Signs Vital Signs: Temp Pulse Pulse Resp BP Pulse Ox 08/13/20 14:30 36.4 C L 72 13 130/79 96 08/13/20 14:20 36.4 C L 75 17 138/75 95 08/13/20 14:10 36.4 C L 82 17 135/91 97 08/13/20 14:00 36.4 C L 87 17 140/86 97 08/13/20 13:50 36.4 C L 80 23 139/84 97 08/13/20 13:40 90 16 136/90 96 08/13/20 13:30 82 19 142/81 H 95 08/13/20 13:20 82 16 137/79 94 08/13/20 13:10 87 15 125/75 96 08/13/20 12:59 36.8 C 94 H 18 127/71 94 08/13/20 09:23 36.6 C 82 20 154/92 H 96 Pain Intensity Right Knee: Pain Intensity: 0 Transfer of Care Handoff Completed per policy Notes Mental Status: alert / awake / arousable and participated in evaluation Patient Amnestic to Procedure: Yes Nausea / Vomiting: adequately controlled Pain: adequately controlled Airway Patency, RR, SpO2: stable & adequate BP & HR: stable & adequate Hydration State: stable & adequate Anesthetic Complications: no major complications apparent and Pt Satisfied with anesthetic care
[2020-08-13] MEDS ORDERED: INFLUENZA VIRUS QUAD VACCINE 0.5 ML SYR IM ONE (15:10)
[2020-08-13] MEDS ORDERED: INFLUENZA ADMINISTRATION CHARGE ONE (15:10)
[2020-08-13] MEDS: ACETAMINOPHEN 500 MG TAB PO SCH (15:26)
[2020-08-13] MEDS: KETOROLAC 30 MG/ML VIAL IV SCH ×2 (15:27→22:17)
[2020-08-13] MEDS: ceFAZolin 2000MG 2,000 MG/15 ML SYR IV SCH (18:17)
[2020-08-13] MEDS ORDERED: SENNA 8.6 MG TAB PO SCH (21:00)
[2020-08-13] MEDS: DOCUSATE SODIUM 100 MG CAP PO SCH (22:16)
[2020-08-14] MEDS: ACETAMINOPHEN 500 MG TAB PO SCH ×2 (01:16→07:42)
[2020-08-14] MEDS: ceFAZolin 2000MG 2,000 MG/15 ML SYR IV SCH (03:56)
[2020-08-14] MEDS: KETOROLAC 30 MG/ML VIAL IV SCH ×2 (03:56→09:43)
[2020-08-14 05:57] LABS: Hematocrit (blood only) 37.4 % (42-52); Hemoglobin 13.2 g/dL (14.0-18.0); Mean Corpuscular Hemoglobin 32.1 pg (25-34); Mean Corpuscular Hgb Conc 35.3 g/dL (32-36); Mean Platelet Volume 10.6 fL (7.4-10.4); Platelet Count 178 K/uL (130-400); RDW Coefficient of Variation 12.2 % (11.5-14.5); Red Blood Count 4.11 M/uL (4.7-6.1); White Blood Count 12.66 K/uL (4.8-10.8)
[2020-08-14 06:26] LABS: BUN Creatinine Ratio 18.2 (10-20); Calcium 8.2 mg/dl (8.5-10.1); Creatinine Clr Calc Pharmacy 78.1 ml/min; Est GFR (African American) 71.2; Est GFR (Non-African American) 61.4; Potassium 4.2 mmol/L (3.5-5.1)
[2020-08-14] MEDS ORDERED: dexAMETHasone 4 MG TAB PO SCH (08:00)
--- NOTE | 2020-08-14 08:14 | Orthopedic Progress Note ---
Date of Service August 14, 2020 Assessment & Plan (1) Status post right knee replacement: Overall is doing very well. Is not having much pain in the right knee. He is on Xarelto for DVT prophylaxis. He will be seen by therapy today for ambulation and range of motion exercises. He can be discharged home later today. He will follow-up with orthopedics in 2 weeks. Curtis Mayer was seen and examined at bedside this morning. Overall is doing very well. Is not having much pain in the right knee. He has been up and ambulating. He has no complaints. . Review of Systems All systems reviewed & are unremarkable except as noted in HPI & below. Physical Exam On physical examination of the right knee, his dressing is clean and dry. He has motion from 5 to 90 degrees. He has active dorsiflexion and plantarflexion of his right ankle. . Results & Data Results & Data Laboratory Results . Diagnostic Findings Postoperative x-rays of the right knee show the prosthesis to be in anatomic alignment without any evidence of fracture, dislocation, or loosening. . PG Care Time/CCT Total # of Minutes Spent Total Time Spent with Patient: Total time spent is greater than 50% in coordination of care (as documented) at patient's floor/unit and/or counseling patient: Coding Level of Care Code 44281 Post Operative Follow-Up Diagnoses Status post right knee replacement Z96.651
--- NOTE | 2020-08-14 08:15 | Discharge Summary ---
Date of Service August 14, 2020 Admission HPI (Per Admitting) Moreno is a pleasant 59-year-old male who has been dealing with chronic increasing right knee pain. He original x-rays and MRI show some arthritis and loose bodies. He underwent a right knee arthroscopy in July 2019. Unfortunately he did not do well postoperatively. He has had a couple of injections but continues to have knee pain. He has trouble regaining range of motion. His knee hurts him all the time. Follow-up x-rays show advancing osteoarthritis of the right knee. After failing conservative treatment, he has elected proceed with a right total knee arthroplasty.. Admission Exam (Per Admitting) On physical examination of the right knee he has range of motion from 10 to 110 degrees. He has trouble reaching full extension. He is a +2 effusion. He has pain of the distal medial femoral condyle and over the medial joint line.. Principal Diagnosis Same as "Discharge Diagnosis" noted below under Discharge Instructions. Discharge Exam On physical examination of the right knee, his dressing is clean and dry. He has motion from 5 to 90 degrees. He has active dorsiflexion and plantarflexion of his right ankle. . Discharge Data Consultations 08/13/20 14:42 Consult Case Management - Discharge Planning Routine Procedures Performed Operation Date: 08/13/20 11:30 Actual Procedures p Right Total Knee Arthroplasty(Right) - Juan Alston DO Hospital Course (1) Status post right knee replacement: On August 13, 2020 Moreno arrived at [facility] and underwent a right knee replaced without complication. He had a spinal anesthetic. Postoperatively he was started back on Xarelto for DVT prophylaxis and transferred to the general orthopedic floors. His hospital course was uneventful. On postop day #1 his H&H was stable and his pain was well controlled. He was able to participate well with physical therapy doing ambulation and range of motion exercises. He was then discharged home. He will follow-up with orthopedics in 2 weeks. PG Care Time/CCT Total # of Minutes Spent Total Time Spent with Patient: Total time spent is greater than 50% in coordination of care (as documented) at patient's floor/unit and/or counseling patient: Discharge Plan Discharge Items Patient Disposition: Home - Home Health Services Reason For Visit: DJD right knee Discharge Diagnosis: Right knee replacement Activity: Resume your previous activity Non-emergency contact: Surgeon Call non-emergency contact if: your wound has increased redness and your wound has increased drainage Follow-up/Referrals: Garry Schmitt, [Primary Care Provider] - Diet: Regular Addtl Attending Provider Instructions: Activity and Therapy Recommendations: * If you are using [facility] then therapy will be provided at your home until they feel you have accomplished all of your goals. * If you are using [facility] then Physical Therapy will be provided until they feel you are ready to start Outpatient Physical Therapy. * If you are not using home therapy then Outpatient Physical Therapy should start about 3-5 days from your day of surgery. Therapy will last about 6-10 weeks * It is important not to put a pillow under your knee when you are relaxing or sleeping. It is just as important to make sure you are getting your knee perfectly straight as it is to regain your knee bend. * You were shown a series of exercises in the hospital. Do these exercises three times each day including the exercises you were shown in physical therapy. * Get up and walk several times each day. For the first four weeks, try not to stand or walk for more than one hour at a time. If you do stand or walk for more than one hour, you will not hurt anything, but your leg will likely swell. * As you feel comfortable, you may change from the walker or crutches to a cane and then to independent walking. Medications: * Narcotic You will likely be sent home from the hospital with a prescription for the narcotic pain medication that worked best throughout your stay. * Aspirin Most patients will be required to take Aspirin 81mg twice a day for 6 weeks after surgery. This is obtained [id number] and a prescription is not necessary. * Other medications may be prescribed for specific circumstances. If you have any questions, please call the office at . * Resume previous home medications unless otherwise instructed TEDs/Elastic Stockings: The white elastic stockings help limit swelling and prevent blood clots from forming in your legs.~ The more you wear them, the more they work. Wear them for six weeks. Dressing Care: Leave the Silverlon dressing in place for 7 days. After 7 days you may remove the dressing. If the incision is not draining then you may leave the victoria open to air. If there is a little bit of drainage or if the victoria are getting stuck on your clothing then cover the incision with a dry dressing. The victoria will be removed at your 2 week follow-up appointment. Showering: You may shower with the Silverlon dressing in place. Do not let the shower spray hit the dressing directly. Pat the Silverlon dressing dry. If the dressing becomes wet underneath, then simply remove the dressing. Keep the incision dry until you are 7 days out from the day of surgery. After 7 days you may remove the Silverlon dressing and shower with the victoria exposed. Let soapy water run over the victoria and pat them dry. Do not scrub or soak the incision. Things To Watch For: * Drainage from the incision site that occurs more than one week after your surgery. * Increased redness at the incision site. * Fever above 102 degrees Fahrenheit. * Unusual chest pain or shortness of breath. * Call [facility] at with any of the above problems Follow-Up Visit: Follow-up with Dr. Alston's PA (Juan Hager) 2-3 weeks after your day of surgery. He will remove your victoria and answer any questions. If you have any additional questions or concerns, Dr Alston is usually in the office at the same time and will be available An appointment was probably scheduled when you signed-up for surgery in the office. If you have any questions call Office Instructions: More detailed instructions as well as Frequently Asked Questions were provided in a folder by our office when you signed-up for surgery. Please review these instructions when you get home. If you have any further questions or concerns, please feel free to call the office at [phone] Pending Studies at Discharge: No Stand-Alone Forms: My [facility] Medications and DC Order Prescriptions: New oxycodone 5 mg Tablet 5 mg PO Q4H PRN (Reason: pain) Qty: 60 RF: 0 Continued atorvastatin 10 mg tablet 10 mg PO QAM Qty: 30 RF: 11 losartan 100 mg tablet 50 mg PO QAM Qty: 90 RF: 3 triamterene-hydrochlorothiazid 37.5-25 mg tablet 1 tab PO QAM Qty: 30 RF: 11 colchicine 0.6 mg tablet 0.6 mg PO .COMPLEX Qty: 20 RF: 2 ibuprofen 200 mg Capsule 400 mg PO Q6H PRN (Reason: Pain) RF: 0 Xarelto 20 mg Tablet 20 mg PO QAM RF: 0 Discharge Orders: Discharge Order (Routine); Ordered 08/14/20 Ordered By: Juan Alston Admission Data Admit Date/Time: 08/13/20 13:05 Attending Provider: Juan Alston Admit Provider: Juan Alston Primary Care Provider: Garry Schmitt
[2020-08-14] MEDS ORDERED: MULTIVITAMIN TAB PO SCH (09:00)
[2020-08-14] MEDS ORDERED: LOSARTAN POTASSIUM 50 MG TAB PO SCH (09:00)
[2020-08-14] MEDS ORDERED: ATORVASTATIN 10 MG TAB PO SCH (09:00)
[2020-08-14] MEDS ORDERED: RIVAROXABAN 20 MG TAB PO SCH (09:00)
[2020-08-14] MEDS ORDERED: TRIAMTERENE/HCTZ 37.5/25MG TAB PO SCH (09:00)
[2020-08-14] MEDS: DOCUSATE SODIUM 100 MG CAP PO SCH (09:43)
== END 2020-08-14 11:20 | disposition home health service (06) ==
LOC: 3E 08:49 → ASU 08:49